=== PATIENT | female | born 1970 | race Two or more races ===

== ENCOUNTER 2021-12-08 07:15 | Emergency (ER) | payer MEDICAID ==
[~2021-12-08] VITALS: Ht 152.4 cm; Wt 54.4 kg
[2021-12-08] MEDS ORDERED: METOPROLOL TARTRATE 5 MG/5 ML VIAL IVP ONE ×6 (07:26→09:30)
[2021-12-08] MEDS ORDERED: MORPHINE SULFATE 2 MG/1 ML DISP.SYRIN IV ONE (07:30)
[2021-12-08 07:47] LABS: MEAN CORPUSCULAR HEMOGLOBIN 27.9 uug (24.7-32.8); MEAN CORPUSCULAR VOLUME 88.2 fL (75.5-95.3); PLATELET COUNT (AUTO) 142 K/uL (179-408)
[2021-12-08] MEDS ORDERED: ROBAXIN PO (07:54)
[2021-12-08] MEDS ORDERED: ASPI81TA31 PO (07:54)
[2021-12-08] MEDS ORDERED: VITA1TAB37 PO (07:54)
[2021-12-08] MEDS ORDERED: HYDR-3972 PO (07:54)
[2021-12-08] MEDS ORDERED: CARV12.5 PO (07:54)
[2021-12-08] MEDS ORDERED: ATOR20TA PO (07:54)
[2021-12-08] MEDS ORDERED: IRON100V6 IV (07:54)
[2021-12-08] MEDS ORDERED: LEFL20TA PO (07:54)
[2021-12-08] MEDS ORDERED: SEVE800T8 PO (07:54)
[2021-12-08] MEDS ORDERED: CINA30TA2 PO (07:54)
[2021-12-08] MEDS ORDERED: SERT25TA PO (07:54)
[2021-12-08] MEDS ORDERED: ACET-2154 PO (07:54)
[2021-12-08] MEDS ORDERED: PRED2.5T PO (07:54)
[2021-12-08] MEDS ORDERED: OMEP20CA15 PO (07:54)
[2021-12-08] MEDS ORDERED: CATAPRES PO (07:54)
[2021-12-08] MEDS ORDERED: BUME2TAB7 PO (07:54)
[2021-12-08] MEDS ORDERED: HYDR200T81 PO (07:54)
[2021-12-08] MEDS ORDERED: CALC0.253 PO (07:54)
[2021-12-08] MEDS ORDERED: AMLO10TA59 PO (07:54)
[2021-12-08] MEDS ORDERED: AMIN960L24 (07:54)
[2021-12-08] MEDS ORDERED: PROM25AM IJ (07:54)
[2021-12-08] MEDS ORDERED: GABA-532 PO (07:54)
[2021-12-08] MEDS ORDERED: LOSA50TA3 PO (07:54)
[2021-12-08] MEDS ORDERED: VIT1CAPS9 PO (07:54)
[2021-12-08] MEDS ORDERED: TORADOL PO (07:54)
--- NOTE | 2021-12-08 07:55 | NUR ---
Patient on a monitor. States she feels her heart "pounding". IV placed
[2021-12-08 07:59] LABS: CARBON DIOXIDE 32 mmol/L (21-32); CHLORIDE 94 mmol/L (98-107); CREATININE 3.9 mg/dL (0.6-1.3); GLUCOSE 91 mg/dL (74-106); POTASSIUM 3.4 mmol/L (3.5-5.1); UREA NITROGEN, BLOOD 35 mg/dL (7-18)
[2021-12-08 08:12] LABS: ALANINE AMINOTRANSFERASE 14 U/L (14-59); ALKALINE PHOSPHATASE 121 U/L (50-136); ASPARTATE AMINOTRANSFERASE 9 U/L (15-37); BILIRUBIN,DIRECT 0.1 mg/dL (0.0-0.2); BILIRUBIN,TOTAL 0.6 mg/dL (0.2-1.0); TOTAL PROTEIN, SERUM 6.9 g/dL (6.4-8.2)
[2021-12-08] MEDS ORDERED: CARVEDILOL 25 MG TABLET ONE (08:19)
[2021-12-08] MEDS: CARVEDILOL 25 MG TABLET PO SCH ×2 (08:21→08:33)
[2021-12-08] MEDS ORDERED: LORAZEPAM 2 MG/1 ML VIAL IV ONE (10:00)
--- NOTE | 2021-12-08 10:02 | NUR ---
Patient states she feels better less feeling of heart pounding.
[2021-12-08 11:04] VITALS: BP 128/74
== END 2021-12-08 10:02 | disposition home or self-care (01) ==
LOC: ER 07:15
DX: R07.9 Chest pain, unspecified (principal); I48.91 Unspecified atrial fibrillation; M32.9 Systemic lupus erythematosus, unspecified; I12.0 Hypertensive chronic kidney disease with stage 5 chronic kidney disease or end stage renal disease; N18.6 End stage renal disease; Z99.2 Dependence on renal dialysis; Z79.01 Long term (current) use of anticoagulants; Z79.82 Long term (current) use of aspirin; Z79.899 Other long term (current) drug therapy
CPT/HCPCS: 99291; 96374; 80076; 80048; 83880; 85025; 84484 ×2; 36415; 93005; 71045; 96376; J3490 ×3; A4663